=== PATIENT | male | born 1995 | race Caucasian/White ===

== ENCOUNTER 2017-01-23 09:01 | Emergency (ER) | payer BC ==
[2017-01-23 09:28] VITALS: BP 114/62
--- NOTE | 2017-01-23 09:53 | UC ---
Neck Pain HPI - HPI Summary HPI Summary: Upper neck pain around the base of the skull that began swiftly yesterday and has gotten progressively worse. No fever or chills. No immunocompromised state, HIV, hep c, iv drug use or recent dental work. No trauma or reason for pain. It hurts more to move and to swallow and to take a deep breath. - History of Current Complaint Chief Complaint: UCBackPain Stated Complaint: NECK STIFFNESS DIFFICULTY SWALLOWING Time Seen by Provider: 01/23/17 09:27 Hx Obtained From: Patient Onset/Duration Of Injury/Symptoms: Hours Timing: Constant Onset/Duration: Gradual Onset, Lasting Hours Severity: Severe Location: Discrete At: - upper neck. midline. Character: Sharp, Stiff Aggravating Factors: Movement Alleviating Factors: Position Associated Signs & Symptoms: Positive: Negative - Allergies/Home Medications Allergies/Adverse Reactions: Allergies Allergy/AdvReac Type Severity Reaction Status Date / Time No Known Allergies Allergy Verified 01/23/17 09:11 Home Medications: Home Medications Ibuprofen [Advil] 2 tab PO ONCE PRN 01/23/17 [History Confirmed 01/23/17] PMH/Surg Hx/FS Hx/Imm Hx Previously Healthy: Yes - no HIV. - Surgical History Surgical History: Yes Surgery Procedure, Year, and Place: RIGHT ARM FX REPAIR, PLATE AND SCREWS 2013. tear duct surgery as baby - Family History Known Family History: Positive: Other - positive [facility] for sore throat Negative: Cardiac Disease, Hypertension - Social History Occupation: Employed Full-time Alcohol Use: Occasionally Substance Use Type: Marijuana Substance Use Comment - Amount & Last Used: occasional use- last used a few days ago Smoking Status (MU): Former Smoker Type: Cigarettes Amount Used/How Often: 1 CIG DAILY When Did the Patient Quit Smoking/Using Tobacco: apr 2016 Review Of Systems Musculoskeletal: Positive: Decreased ROM - c spine. All Other Systems Reviewed And Are Negative: Yes Physical Exam Triage Information Reviewed: Yes Appearance: Pain Distress - he is unable to move his neck. no nuchal rigidity. Vital Signs: Initial Vital Signs Temp 98.1 F 01/23/17 09:12 Pulse 64 01/23/17 09:12 Resp 16 01/23/17 09:12 BP 114/62 01/23/17 09:12 Pulse Ox 100 01/23/17 09:12 Vital Signs Reviewed: Yes Eye Exam: Normal ENT Exam: Normal ENT: Positive: Pharynx normal, TMs normal. Negative: Pharyngeal erythema, Nasal congestion, Nasal drainage, Tonsillar swelling, Tonsillar exudate, Trismus , Muffled/hoarse voice Neck exam: Normal Neck: Positive: Supple, Nontender, No Lymphadenopathy Respiratory Exam: Normal Cardiovascular Exam: Normal Abdominal Exam: Normal Musculoskeletal Exam: Other - Tenderness at the base of the neck. no bruising or deformity. Musculoskeletal: Positive: ROM Limited @ Neurological Exam: Normal, Other - reflexes shannan symmetric uppeer and lower extremeties. Pin prick intact in all extremeties. Neurological: Positive: Alert, Muscle Tone Normal. Negative: Fatigued, Lethargic, Abnormal Muscle Tone Psychological Exam: Normal Skin Exam: Normal Neck Pain Course/Dx - Course Course Of Treatment: Unexplained brisk onset upper neck pain exacerbated by deep breaths and swallowing although he does not have a sore throat. I cannot explain these symptoms easily. i would be concerned for discitis or upper neck base of the skull abcess. I would recommend further evaluation in the ED and possible labs, cbc/sed rate/crp and/or MRI. - Differential Dx/Diagnosis Differential Dx/HQI/PQRI: Dislocation, Sprain, Strain Provider Diagnoses: neck pain. possible discitis. Discharge - Discharge Plan Condition: Guarded Disposition: TRANS HIGHER LVL OF CARE FAC Patient Education Materials: Neck Pain (ED) Referrals: No Primary Care Phys,NOPCP [Primary Care Provider] - Additional Instructions: As we discussed, please go immediately to the [facility]. I have called and spoken with Sheron Navarro who is aware that you are on your way.
== END 2017-01-23 09:53 | disposition home or self-care (01) ==
LOC: UCCORT 09:01
DX: M54.2 Cervicalgia (principal); R13.10 Dysphagia, unspecified; F12.90 Cannabis use, unspecified, uncomplicated; Z87.891 Personal history of nicotine dependence
CPT/HCPCS: 99211; G0463

== ENCOUNTER 2017-09-24 12:28 | Emergency (ER) | payer BC ==
[2017-09-24 14:14] VITALS: BP 121/76
--- NOTE | 2017-09-24 14:39 | UC ---
Skin Complaint HPI - HPI Summary HPI Summary: 22 yo male with a week hx of spreading rash mildly pruritic start out as "red spots" then become anular with raised red borders and scale - History of Current Complaint Chief Complaint: UCRash Time Seen by Provider: 09/24/17 14:32 Stated Complaint: SKIN COMPLAINT Hx Obtained From: Patient Onset/Duration: Gradual Onset, Lasting Days Timing: Constant Onset Severity: Mild Current Severity: Moderate Pain Intensity: 0 Pain Scale Used: 0-10 Numeric Location: Other - legs>arms>trunk Character: Pruritus, Redness, Raised Aggravating Factor(s): Nothing Alleviating Factor(s): Nothing Associated Signs & Symptoms: Positive: Rash - Allergy/Home Medications Allergies/Adverse Reactions: Allergies Allergy/AdvReac Type Severity Reaction Status Date / Time cat dander Allergy Itchy Verified 09/24/17 14:10 Eyes, Sneezing, Nasal Congestion dog dander Allergy Itchy Verified 09/24/17 14:10 Eyes, Sneezing, Nasal Congestion dust Allergy Itchy Uncoded 09/24/17 14:10 Eyes, Sneezing, Nasal Congestion Home Medications: Home Medications Clotrimazole 1% CREAM* [Clotrimazole 1%*] 1 applic TOPICAL BID PRN 09/24/17 [ History Confirmed 09/24/17] Review of Systems Constitutional: Negative Skin: Rash Eyes: Negative ENT: Negative Respiratory: Negative Cardiovascular: Negative Gastrointestinal: Negative Genitourinary: Negative Motor: Negative Neurovascular: Negative Musculoskeletal: Negative Neurological: Negative Psychological: Negative Is Patient Immunocompromised?: No All Other Systems Reviewed And Are Negative: Yes PMH/Surg Hx/FS Hx/Imm Hx Previously Healthy: Yes - Surgical History Surgical History: Yes Surgery Procedure, Year, and Place: RIGHT ARM FX REPAIR, PLATE AND SCREWS 2013. tear duct surgery as baby - Family History Known Family History: Positive: Other - positive [facility] for sore throat Negative: Cardiac Disease, Hypertension - Social History Alcohol Use: Rare Substance Use Type: Marijuana Substance Use Comment - Amount & Last Used: Daily Smoking Status (MU): Former Smoker Type: Cigarettes Amount Used/How Often: 1 CIG DAILY Length of Time of Smoking/Using Tobacco: 2016 When Did the Patient Quit Smoking/Using Tobacco: apr 2016 Physical Exam Triage Information Reviewed: Yes Appearance: Well-Appearing, No Pain Distress, Well-Nourished Vital Signs: Initial Vital Signs Temp 99.4 F 09/24/17 14:07 Pulse 80 09/24/17 14:07 Resp 16 09/24/17 14:07 BP 121/76 09/24/17 14:07 Pulse Ox 95 09/24/17 14:07 Vital Signs Reviewed: Yes Eyes: Positive: Conjunctiva Clear ENT: Positive: Hearing grossly normal. Negative: Nasal congestion, Nasal drainage, Trismus, Muffled voice, Hoarse voice Dental Exam: Normal Neck: Positive: Supple, Nontender Respiratory: Positive: Lungs clear, Normal breath sounds, No respiratory distress Cardiovascular: Positive: RRR, No Murmur Musculoskeletal: Positive: ROM Intact, No Edema Neurological: Positive: Alert Psychological Exam: Normal Skin: Positive: rashes - numerous red paupules and 5-10 anular lesions with red /raise border and scale Course/Dx - Diagnoses Provider Diagnoses: tinea corporis Discharge - Sign-Out/Discharge Documenting (check all that apply): Discharge/Admit/Transfer - Discharge Plan Condition: Stable Disposition: HOME Prescriptions: Griseofulvin, Microsize [Griseofulvin] 500 mg PO DAILY #21 tablet Patient Education Materials: Tinea Corporis (ED) Referrals: No Primary Care Phys,NOPCP [Primary Care Provider] - Additional Instructions: recheck if not markedly better in 2 weeks - Billing Disposition and Condition Condition: STABLE Disposition: HOME
== END 2017-09-24 14:50 | disposition home or self-care (01) ==
LOC: UCCORT 12:28
DX: B35.4 Tinea corporis (principal); Z87.891 Personal history of nicotine dependence
CPT/HCPCS: 99212; G0463